=== PATIENT | female | born 1990 | race Caucasian/White ===

== ENCOUNTER 2016-10-28 13:47 | Emergency (ER) | payer MEDICAID ==
[~2016-10-28] VITALS: Ht 180.3 cm; Wt 123.4 kg
[~2016-10-28 13:47] MED LIST: ALBU0.0912 IH
[2016-10-28 13:56] VITALS: BP 105/81
[2016-10-28] MEDS ORDERED: fentaNYL 0.05 MG/ML VIAL IM ONE (14:15)
[2016-10-28 15:29] VITALS: BP 120/68
== END 2016-10-28 15:29 | disposition home or self-care (01) ==
LOC: MED 13:47
DX: N39.0 Urinary tract infection, site not specified (principal); M25.551 Pain in right hip; R03.0 Elevated blood-pressure reading, without diagnosis of hypertension; Z88.8 Allergy status to other drugs, medicaments and biological substances; J45.909 Unspecified asthma, uncomplicated; L93.0 Discoid lupus erythematosus
CPT/HCPCS: 73502; 74000; 81002; 81025; 96372; 99284; J3010